=== PATIENT | male | born 1995 | race Caucasian/White ===

== ENCOUNTER 2019-05-09 17:48 | Emergency (ER) | payer OTHER ==
[2019-05-09] MEDS ORDERED: DOXYcycline CAP(*) 100 MG PO ONE (18:18)
--- NOTE | 2019-05-09 18:21 | ED ---
Laceration/Wound HPI - HPI Summary HPI Summary: 24 year old male presents with lacerations to his right wrist from a couple days ago. He states he cut his wrist on some glass. Unsure of is there is foreign body in the wound. He denies any fevers or chills. no spreading Redness. Is concerned that maybe getting infected. No drainage from wound. - History of Current Complaint Stated Complaint: CUT MY HAND PER PT Time Seen by Provider: 05/09/19 18:00 Pain Intensity: 0 - Allergy/Home Medications Allergies/Adverse Reactions: Allergies Allergy/AdvReac Type Severity Reaction Status Date / Time amoxicillin Allergy Hives Verified 05/09/19 17:54 cefprozil Allergy Hives Verified 05/09/19 17:54 PMH/Surg Hx/FS Hx/Imm Hx Endocrine/Hematology History: Denies: Hx Anticoagulant Therapy Respiratory History: Denies: Hx Asthma - Surgical History Surgery Procedure, Year, and Place: tonsilectomy, APPENDECTOMY Infectious Disease History: No Infectious Disease History: Denies: Traveled Outside the [place] in Last 30 Days - Family History Known Family History: Positive: Hypertension - Social History Alcohol Use: None Substance Use Type: Reports: None Smoking Status (MU): Current Every Day Smoker Type: Cigarettes Amount Used/How Often: 1 PPD Have You Smoked in the Last Year: Yes Review of Systems Negative: Fever Negative: Chest Pain Negative: Shortness Of Breath Positive: Other - laceration right hand All Other Systems Reviewed And Are Negative: Yes Physical Exam Triage Information Reviewed: Yes Vital Signs On Initial Exam: Initial Vitals Temp Pulse Resp BP Pulse Ox 98.9 F 89 17 120/71 96 05/09/19 17:51 05/09/19 17:51 05/09/19 17:51 05/09/19 17:51 05/09/19 17:51 Vital Signs Reviewed: Yes Appearance: Positive: Well-Appearing Skin: Positive: Warm, Dry, Other - 2cm lacerations to right palm that are healing without dehiscence of cellulitis, no foreign body felt Head/Face: Positive: Normal Head/Face Inspection Eyes: Positive: Normal, Conjunctiva Clear ENT: Positive: Pharynx normal Respiratory/Lung Sounds: Positive: Clear to Auscultation, Breath Sounds Present Cardiovascular: Positive: Normal, RRR Musculoskeletal: Positive: Strength/ROM Intact - right hand, Other - good pulses Neurological: Positive: Normal Psychiatric: Positive: Normal Diagnostics - Vital Signs Vital Signs Temp Pulse Resp BP Pulse Ox 05/09/19 17:51 98.9 F 89 17 120/71 96 - Laboratory Lab Statement: Any lab studies that have been ordered have been reviewed, and results considered in the medical decision making process. Laceration Repair Course/Dx - Course Course Of Treatment: 24 year old male presents with lacerations to his right wrist from a couple days ago. He states he cut his wrist on some glass. Unsure of is there is foreign body in the wound. He denies any fevers or chills. no spreading Redness. Is concerned that maybe getting infected. No drainage from wound. On exam has 2cm healing laceration of right wrist. No evidence of dehiscence or cellulitis. Does not appear to have a foreign body in area. Will place on doxycyline for ppx of infection. Patient understands agrees with plan. - Differential Dx Differental Diagnoses: Abrasion, Avulsion, Laceration - Clinical Impression Provider Diagnoses: Laceration of right wrist Discharge - Sign-Out/Discharge Documenting (check all that apply): Patient Departure Patient Received Moderate/Deep Sedation with Procedure: No - Discharge Plan Condition: Good Disposition: HOME Prescriptions: DOXYcycline CAP(*) [DOXYcycline 100MG CAP(*)] 100 mg PO BID #9 cap Patient Education Materials: Laceration Without Closure (ED) Referrals: Kennedy Ann MD [Primary Care Provider] - Additional Instructions: Take doxycyline twice a day for 5 days Follow up with primary within 3 days Return to ED if develop fever, area of redness spreads, or any new or worsening symptoms - Billing Disposition and Condition Condition: GOOD Disposition: Home
[2019-05-09 18:30] VITALS: BP 118/77
== END 2019-05-09 18:29 | disposition home or self-care (01) ==
LOC: ED 17:48
DX: S61.511A Laceration without foreign body of right wrist, initial encounter (principal); W25.XXXA Contact with sharp glass, initial encounter; F17.210 Nicotine dependence, cigarettes, uncomplicated; Z88.1 Allergy status to other antibiotic agents
CPT/HCPCS: 99282; A9270-GY

== ENCOUNTER 2019-11-07 18:41 | Emergency (ER) | payer OTHER ==
[2019-11-07 19:26] VITALS: BP 134/77
--- NOTE | 2019-11-07 20:01 | UC ---
Ear Complaint HPI - HPI Summary HPI Summary: 24-year-old male presents with a complaint. He states for the last 3 days his right ear has felt plugged. He try to remove wax but was unsuccessful. No fevers or chills. He has had no dizziness or vertigo or discharge from the ear. Nothing improves his symptoms. Nothing worsened symptoms. He states he has a history of recurrent ear infections. - History of Current Complaint Chief Complaint: UCEar Stated Complaint: EAR COMPLAINT Time Seen by Provider: 11/07/19 19:57 Hx Obtained From: Patient Onset/Duration: Gradual Onset Pain Intensity: 5 - Allergies/Home Medications Allergies/Adverse Reactions: Allergies Allergy/AdvReac Type Severity Reaction Status Date / Time Penicillins Allergy Severe Hives, Verified 11/07/19 19:27 vomiting amoxicillin Allergy Hives Verified 05/09/19 17:54 cefprozil Allergy Hives Verified 05/09/19 17:54 Home Medications: Home Medications Venlafaxine HCl 150 mg PO DAILY 11/07/19 [History Confirmed 11/07/19] PMH/Surg Hx/FS Hx/Imm Hx Previously Healthy: Yes Other History Of: Negative For: Anticoagulant Therapy - Surgical History Surgical History: Yes Surgery Procedure, Year, and Place: tonsilectomy, APPENDECTOMY - Family History Known Family History: Positive: Hypertension - Social History Alcohol Use: None Substance Use Type: Marijuana, Prescribed Substance Use Comment - Amount & Last Used: 11/07/19 Smoking Status (MU): Current Every Day Smoker Type: Cigarettes Amount Used/How Often: 1 PPD Have You Smoked in the Last Year: Yes Household Exposure Type: Cigarettes Review of Systems All Other Systems Reviewed And Are Negative: Yes ENT: Positive: Ear Ache Physical Exam Triage Information Reviewed: Yes Appearance: Well-Appearing, No Pain Distress, Well-Nourished Vital Signs: Initial Vital Signs Temp 97.6 F 11/07/19 19:22 Pulse 80 11/07/19 19:22 Resp 22 11/07/19 19:22 BP 134/77 11/07/19 19:22 Pulse Ox 98 11/07/19 19:22 Vital Signs Reviewed: Yes Eye Exam: Normal ENT Exam: Normal ENT: Positive: Nasal congestion, TM bulging, TM dull, TM red - Right Dental Exam: Normal Neck exam: Normal Neck: Positive: 1 Respiratory Exam: Normal Cardiovascular Exam: Normal Abdominal Exam: Normal Musculoskeletal Exam: Normal Neurological Exam: Normal Psychological Exam: Normal Skin Exam: Normal Ear Complaint Course/Dx - Course Course Of Treatment: Patient with history of recurrent AOM. At this time right ear is bulging with erythema. He is also experiencing decreased hearing for about 3 days. At this time start azithromycin as he has allergies to numerous antibiotics and state he has tolerated that medication in the past. If symptoms worsen go to emergency room. Follow up with PCP in 2-3 days. Patient is aware and agreeable to plan as well as the side effects of medication. - Differential Dx/Diagnosis Differential Diagnosis/HQI/PQRI: Otitis Externa, Otitis Media, Perforated TM, URI Provider Diagnosis: Acute otitis media Discharge ED - Sign-Out/Discharge Documenting (check all that apply): Patient Departure All imaging exams completed and their final reports reviewed: No Studies - Discharge Plan Condition: Good Disposition: HOME Prescriptions: Azithromycin TAB* [Zithromax TAB (Z-PER) 250 mg #6 tabs] 2 tab PO .TODAY, THEN 1 DAILY #1 per Patient Education Materials: Ear Infection (ED) Referrals: No Primary Care Phys,NOPCP [Primary Care Provider] - If Needed - Billing Disposition and Condition Condition: GOOD Disposition: Home
== END 2019-11-07 20:04 | disposition home or self-care (01) ==
LOC: UCCORT 18:41
DX: H66.92 Otitis media, unspecified, left ear (principal); F17.210 Nicotine dependence, cigarettes, uncomplicated; Z88.0 Allergy status to penicillin; Z88.8 Allergy status to other drugs, medicaments and biological substances
CPT/HCPCS: 99212; G0463

== ENCOUNTER 2020-05-17 23:23 | Observation (INO) ==
[2020-05-18 01:36] LABS: Albumin 4.6 g/dL (3.2-5.2); Albumin/Globulin Ratio 1.9 (1-3); BUN/Creatinine Ratio 12.2 (8-20); C Reactive Protein 24.1 mg/L (<8.01); Calcium 9.4 mg/dL (8.6-10.3); EGFR African American 155.9 (>60); EGFR Non-African American 128.9 (>60); Globulin 2.4 g/dL (2-4); Potassium 3.6 mmol/L (3.5-5.0); Total Bilirubin 2.4 mg/dL (0.2-1.0)
[2020-05-18 01:39] LABS: Nucleated Red Blood Cells % 0.1
[2020-05-18 01:40] LABS: ABS Basophils 0.1 10^3/ul (0-0.2); ABS Eosinophils 0.2 10^3/ul (0-0.6); ABS Lymphocytes 2.4 10^3/ul (1.0-4.8); ABS Monocytes 0.9 10^3/ul (0-0.8); ABS Neutrophils 5.4 10^3/ul (1.5-7.7); Eosinophil % 2.1 %; Hematocrit 49 % (42-52); Hemoglobin 17.6 g/dL (14.0-18.0); Lymphocyte % 26.3 %; Mean Corpuscular HGB Conc 36 g/dL (31-36); Mean Corpuscular Hemoglobin 34 pg (27-31); Mean Corpuscular Volume 94 fL (80-94); Mean Platelet Volume 7.5 fL (7.4-10.4); Platelet Count 170 10^3/uL (150-450); Red Cell Distribution Width 13 % (10-15)
[2020-05-18 02:17] LABS: Activated Partial Thrombo Time 32.2 seconds (26.0-38.0); INR 1.05 (0.82-1.09)
[2020-05-18] MEDS ORDERED: Iohexol 350 (CONTRAST) 500 ML MDV IV ONE (02:47)
[2020-05-18] MEDS ORDERED: Ondansetron 4 mg VIAL 2 MG/ML 2 ml VIAL IV PRN (03:17)
[2020-05-18 04:41] LABS: Erythrocyte Sed Rate 0 mm/Hr (0-14)
[2020-05-18 06:14] LABS: ABS Basophils 0.1 10^3/ul (0-0.2); ABS Eosinophils 0.2 10^3/ul (0-0.6); ABS Lymphocytes 1.8 10^3/ul (1.0-4.8); ABS Monocytes 0.8 10^3/ul (0-0.8); ABS Neutrophils 4.7 10^3/ul (1.5-7.7); Eosinophil % 2.8 %; Hematocrit 47 % (42-52); Hemoglobin 16.9 g/dL (14.0-18.0); Lymphocyte % 23.8 %; Mean Corpuscular HGB Conc 36 g/dL (31-36); Mean Corpuscular Hemoglobin 34 pg (27-31); Mean Corpuscular Volume 94 fL (80-94); Mean Platelet Volume 7.2 fL (7.4-10.4); Nucleated Red Blood Cells % 0.2; Platelet Count 148 10^3/uL (150-450); Red Blood Count 5.01 10^6 /uL (4.18-5.48); Red Cell Distribution Width 13 % (10-15); White Blood Count 7.7 10^3/uL (3.5-10.8)
[2020-05-18 06:18] LABS: INR 1.09 (0.82-1.09)
[2020-05-18 06:26] LABS: Albumin 4.4 g/dL (3.2-5.2); Calcium 9.6 mg/dL (8.6-10.3); EGFR African American 153.5 (>60); EGFR Non-African American 126.9 (>60); Globulin 2.2 g/dL (2-4); Indirect Bilirubin 2.1 mg/dL (0.3-1.0); Potassium 3.8 mmol/L (3.5-5.0); Total Bilirubin 2.4 mg/dL (0.2-1.0); Total Protein 6.6 g/dL (6.4-8.9)
[2020-05-18 15:35] LABS: Hepatitis B Surface Antigen Nonreactive (Nonreactive)
[2020-05-18 15:40] LABS: Hepatitis A Ab IgM Negative (Negative)
[2020-05-18 15:41] LABS: Hepatitis B Core IgM Nonreactive (Nonreactive)
[2020-05-18 15:41] LABS: Urine Appearance Clear; Urine Bilirubin Negative (Negative); Urine Blood Negative (Negative); Urine Color Amber; Urine Glucose Negative (Negative); Urine Ketones Negative (Negative); Urine Nitrite Negative (Negative); Urine Protein Negative (Negative); Urine Urobilinogen Positive (Negative)
[2020-05-18 15:47] VITALS: BP 124/75
[2020-05-18 15:52] LABS: Hepatitis C Antibody Negative (Negative)
[2020-05-18 16:19] LABS: Urine Specific Gravity > 1.030 (1.010-1.030)
== END 2020-05-18 19:45 | disposition home or self-care (01) ==
LOC: ED 23:23 → INTOOBSV 05-18 03:34 → ICU 05-18 04:15
PROVIDERS: ADMIT Internal Medicine; ATTEND Internal Medicine